=== PATIENT | female | born 1965 | race Caucasian/White ===

== ENCOUNTER 2018-08-20 21:35 | Observation (INO) | payer OTHER, MEDICAID ==
[2018-08-20] MEDS ORDERED: NS 1,000 ML IV ONE ×4 (21:47→22:41)
--- NOTE | 2018-08-20 21:59 | EDPHY ---
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 Thyroid cancer 1999. CABG 2013 - Social History Smoking Status: Current some day smoker Constitutional: Initial Vital Signs Temperature (C) 36.6 C 08/20/18 21:36 Heart Rate 59 L 08/20/18 21:36 Respiratory Rate 16 08/20/18 21:36 Blood Pressure 81/52 L 08/20/18 21:36 O2 Sat (%) 98 08/20/18 21:36 O2 Delivery Mode Room Air Allergies/Adverse Reactions: hydromorphone [From Dilaudid] Allergy (Verified 08/20/18 21:42) Home Medications: Medication Instructions Recorded Allopurinol 08/20/18 Atorvastatin Calcium 08/20/18 Clopidogrel 08/20/18 Fenofibrate 08/20/18 Furosemide 08/20/18 Gabapentin 08/20/18 Isosorbide Dinit/Hydralazine 08/20/18 Lantus 08/20/18 Metoprolol ER-Hctz 100-12.5 mg 08/20/18 buPROPion 08/20/18 novoLOG 08/20/18 Medical Decision Making ED Course/Re-evaluation: CHIEF COMPLAINT: Hallucinations, painful urination HISTORY OF PRESENT ILLNESS: The patient is a 53 y/o female complaining of hallucinations and burning while urinating. The patient states that she is hallucinating "her 4 year old grandson and his mother are talking to her". Per her son, the patient has "not been making since". For the past 3 weeks she has had pain while urinating. She saw her PCP regarding this but was not prescribed any medications as they "were more concerned about her heart and eye sight". No fever, headache, body aches, lightheadedness, chest pain, heart palpitations, shortness of breath, cough, abdominal pain, bowel complaints, numbness, paresthesias. REVIEW OF SYSTEMS: A 10 point review of systems was performed and is negative with the exception of the elements mentioned in the history of present illness. PHYSICAL EXAM: HR, BP, O2 Sat, RR. Temp noted General Appearance: Alert, well hydrated, appropriate, appears systemically ill. Head: Atraumatic without scalp tenderness or obvious injury Eyes: Pupils equal, round, reactive to light and accommodation, EOMI, no trauma , no injection. Ears: Clear bilaterally, no perforation, normal landmarks Nose: Atraumatic, no rhinorrhea, clear. Throat: There is no erythema or exudates, no lesions, normal tonsils, mucus membranes moist. Neck: Supple, 2+ carotid upstroke, nontender, no lymphadenopathy. Respiratory: No retractions, no distress, no wheezes, and no accessory muscle use. Lungs are clear to auscultation bilaterally. Cardiovascular: Regular rate and rhythm, no murmurs, rubs, or gallops. Bilateral carotid, radial, dorsalis pedis, and posterior tibial pulses intact. Good capillary refill all extremities. Gastrointestinal: Abdomen is soft, nontender, non-distended, no masses, no rebound, no guarding, no peritoneal signs. Musculoskeletal: Normal active ROM of all extremities, atraumatic. Neurological: Alert and interactive. The patient has normal DTRs and non- focal cranial nerves, motor, sensory, and cerebellar exam. Skin: No rashes, good turgor, no nodules on palpation. 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 DIFFERENTIAL DIAGNOSIS: The differential diagnosis for the patient's altered mental status included but was not limited to hypoglycemia, infectious process, electrolyte abnormality, head injury, neurologic process, anemia, cardiac process, and intoxicants. MEDICAL DECISION MAKING: The patient is a 53 y/o female presenting with hallucinations and burning while urinating. Per her son, the patient has "not been making since". For the past 3 weeks she has had pain while urinating. On exam she appears systemically ill and is hypotensive; I am concerned for sepsis. Labs ordered; 2L IV NS administered. 2212: Patient's lactate is 3.6, she does not have an elevated WBC; additional labs still pending. 2gm IV Ceftriaxone administered. 2237: Patient does not meet sepsis criteria although she does have a MAP of 50 and is hypotensive. Additional labs still pending. 2250: I consulted with the hospitalist service, Dr. Salvador accepts admission of this patient. - Data Points Laboratory Results: Laboratory Results 08/20/18 22:00 08/20/18 22:00 08/20/18 08/20/18 08/20/18 22:30 22:10 22:00 WBC RBC Hgb Hct MCV MCH MCHC RDW Plt Count MPV Neut % (Auto) Lymph % (Auto) [place] % (Auto) Eos % (Auto) Baso % (Auto) Nucleat RBC Rel Count Absolute Neuts (auto) Absolute Lymphs (auto) Absolute Monos (auto) Absolute Eos (auto) Absolute Basos (auto) Absolute Nucleated RBC Immature Gran % Immature Gran # PT 12.4 SEC SEC (12.0-15.0) INR 0.96 (0.83-1.16) APTT 26.3 SEC SEC (23.0-38.0) VBG Lactic Acid 3.6 mmol/L H mmol/L (0.7-2.1) Sodium Potassium Chloride Carbon Dioxide Anion Gap BUN Creatinine Estimated GFR Glucose Calcium Total Bilirubin Beta HCG, Qual Urine Color Pending Urine Appearance Pending Urine pH Pending Ur Specific [place] Pending Urine Protein Pending Urine Ketones Pending Urine Blood Pending Urine Nitrate Pending Urine Bilirubin Pending Urine Urobilinogen Pending Ur Leukocyte Esterase Pending Urine RBC Pending Urine WBC Pending Ur Epithelial Cells Pending Urine Glucose Pending Salicylates Urine Opiates Screen Pending Acetaminophen Urine Barbiturates Pending Ur Phencyclidine Scrn Pending Ur Amphetamine Screen Pending U Benzodiazepines Scrn Pending Urine Cocaine Screen Pending U Marijuana (THC) Screen Pending Ethyl Alcohol 08/20/18 08/20/18 08/20/18 22:00 22:00 22:00 WBC 6.12 10^3/uL 10^3/uL (3.80-9.50) RBC 4.21 10^6/uL 10^6/uL (4.18-5.33) Hgb 13.1 g/dL g/dL (12.6-16.3) Hct 37.0 % L % (38.0-47.0) MCV 87.9 fL fL (81.5-99.8) MCH 31.1 pg pg (27.9-34.1) MCHC 35.4 g/dL g/dL (32.4-36.7) RDW 13.1 % % (11.5-15.2) Plt Count 338 10^3/uL 10^3/uL (150-400) MPV 10.9 fL fL (8.7-11.7) Neut % (Auto) 54.2 % % (39.3-74.2) Lymph % (Auto) 28.4 % % (15.0-45.0) [place] % (Auto) 10.5 % % (4.5-13.0) Eos % (Auto) 5.1 % % (0.6-7.6) Baso % (Auto) 1.5 % % (0.3-1.7) Nucleat RBC Rel Count 0.0 % % (0.0-0.2) Absolute Neuts (auto) 3.32 10^3/uL 10^3/uL (1.70-6.50) Absolute Lymphs (auto) 1.74 10^3/uL 10^3/uL (1.00-3.00) Absolute Monos (auto) 0.64 10^3/uL 10^3/uL (0.30-0.80) Absolute Eos (auto) 0.31 10^3/uL 10^3/uL (0.03-0.40) Absolute Basos (auto) 0.09 10^3/uL 10^3/uL (0.02-0.10) Absolute Nucleated RBC 0.00 10^3/uL 10^3/uL (0-0.01) Immature Gran % 0.3 % % (0.0-1.1) Immature Gran # 0.02 10^3/uL 10^3/uL (0.00-0.10) PT INR APTT VBG Lactic Acid Sodium 131 mEq/L L mEq/L (135-145) Potassium 3.8 mEq/L mEq/L (3.5-5.2) Chloride 99 mEq/L mEq/L (97-110) Carbon Dioxide 21 mEq/l L mEq/l (22-31) Anion Gap 11 mEq/L mEq/L (6-14) BUN 50 mg/dL H mg/dL (7-23) Creatinine 1.7 mg/dL H mg/dL (0.6-1.0) Estimated GFR 31 Glucose 114 mg/dL H mg/dL (70-100) Calcium 8.0 mg/dL L mg/dL (8.5-10.4) Total Bilirubin 0.4 mg/dL mg/dL (0.1-1.4) Beta HCG, Qual NEGATIVE Urine Color Urine Appearance Urine pH Ur Specific [place] Urine Protein Urine Ketones Urine Blood Urine Nitrate Urine Bilirubin Urine Urobilinogen Ur Leukocyte Esterase Urine RBC Urine WBC Ur Epithelial Cells Urine Glucose Salicylates < 1.0 mg/dL L mg/dL (2.0-20.0) Urine Opiates Screen Acetaminophen < 10 mcg/mL L mcg/mL (10-30) Urine Barbiturates Ur Phencyclidine Scrn Ur Amphetamine Screen U Benzodiazepines Scrn Urine Cocaine Screen U Marijuana (THC) Screen Ethyl Alcohol < 10 mg/dL mg/dL (0-10) Medications Given: Discontinued Medications Sodium Chloride (Ns) 1,000 mls @ 0 mls/hr IV ONCE ONE PRN Reason: Wide Open Stop: 08/20/18 21:48 Last Admin: 08/20/18 21:47 Dose: 1,000 mls Sodium Chloride (Ns) 1,000 mls @ 0 mls/hr IV EDNOW ONE; Wide Open PRN Reason: Protocol Stop: 08/20/18 22:02 Last Admin: 08/20/18 22:05 Dose: 1,000 mls Ceftriaxone Sodium 2 gm/ (Sodium Chloride) 50 mls @ 100 mls/hr IV EDNOW ONE PRN Reason: Protocol Stop: 08/20/18 22:44 Last Admin: 08/20/18 22:49 Dose: 50 mls Sodium Chloride (Ns) 1,000 mls @ 0 mls/hr IV EDNOW ONE; Wide Open PRN Reason: Protocol Stop: 08/20/18 22:21 Last Admin: 08/20/18 22:20 Dose: 1,000 mls Departure - Departure Disposition: [facility] Inpatient Acute Clinical Impression: Hallucination Hypotension Qualifiers: Hypotension type: other hypotension type Qualified Code(s): I95.89 - Other hypotension Condition: Fair Referrals: Patient,NotPresent [Unknown] - As per Instructions Report Scribed for: Benjamin Wagner Report Scribed by: Shaunna Vivar Date of Report: 08/20/18 Time of Report: 22:29
[2018-08-20 22:12] LABS: PLATELET COUNT 338 10^3/uL (150-400)
[2018-08-20 22:22] LABS: INR 0.96 (0.83-1.16); PROTIME(PATIENT) 12.4 SEC (12.0-15.0)
[2018-08-20] MEDS ORDERED: cefTRIAXone 1 GM/DEXTROSE 1 GM/50 ML BAG IV ONE (22:44)
[2018-08-20] MEDS ORDERED: ONDANSETRON DISINTEGRATING 4 MG TAB PO PRN (22:56)
[2018-08-20] MEDS ORDERED: ONDANSETRON 4 MG/2 ML VIAL IVP PRN (22:56)
[2018-08-21] MEDS: LR 1,000 ML IV SCH ×3 (00:38→14:02)
--- NOTE | 2018-08-21 01:30 | PDGENHP ---
History and Physical - Chief Complaint Dysuria, hypotension, confusion - History of Present Illness 53 yo F w/ hx of IDDM, CAD s/p CABG, and thyroid CA presents with dysuria and confusion. The patient tells me she has been having urinary symptoms for about 3 weeks. These include urgency, frequent urination, and foul smelling urine. Over the last 3 days she has noted dysuria, hematuria, and eventually confusion. Over the last few days her blood sugars have been very poorly controlled, with her glucometer indicating levels above those which could be read. She has a history of difficult to control DM. She is s/p BKA bilaterally and has known CKD as well. She takes insulin glargine 50 u HS and aspart sliding scale TID. Upon arrival in the ED she was noted to be hypotensive with an elevated lactic acid. Her blood pressure and lactic acid normalized with 3 L of IVF. Interestingly, her infectious work-up is mostly unremarkable. She is displaying 0/4 SIRS criteria at the moment. At the time of my evaluation her mental status is now normal and she is feeling much improved. She is being admitted for further evaluation. Case discussed with Dr. Wagner; records reviewed and summarized above. History Information - Allergies/Home Medication List Allergies/Adverse Reactions: hydromorphone [From Dilaudid] Allergy (Verified 08/20/18 21:42) Home Medications: Allopurinol 08/20/18 [Last Taken Unknown] Atorvastatin Calcium 08/20/18 [Last Taken Unknown] Clopidogrel 08/20/18 [Last Taken Unknown] Fenofibrate 08/20/18 [Last Taken Unknown] Furosemide 08/20/18 [Last Taken Unknown] Gabapentin 08/20/18 [Last Taken Unknown] Isosorbide Dinit/Hydralazine 08/20/18 [Last Taken Unknown] Lantus 08/20/18 [Last Taken Unknown] Metoprolol ER-Hctz 100-12.5 mg 08/20/18 [Last Taken Unknown] buPROPion 08/20/18 [Last Taken Unknown] novoLOG 08/20/18 [Last Taken Unknown] I have personally reviewed and updated: family history, medical history - Past Medical History coronary artery disease, cancer, diabetes type 2 - Surgical History Reports: amputation (B/l BKA), coronary bypass surgery, thyroid surgery - Family History Positive for: CAD - Social History Smoking Status: Current some day smoker Review of Systems Review of Systems: ROS: 10pt was reviewed & negative except for what was stated in HPI & below Physical Exam Physical Exam: Temp Pulse Resp BP Pulse Ox 36.5 C 66 18 117/67 97 08/20/18 23:24 08/21/18 00:00 08/21/18 00:00 08/21/18 00:00 08/21/18 00:00 Constitutional: chronically ill appearing, obese Eyes: PERRL, EOMI Ears, Nose, Mouth, Throat: moist mucous membranes, no oral mucosal ulcers Cardiovascular: regular rate and rhythym, systolic murmur Respiratory: no respiratory distress, clear to auscultation Gastrointestinal: normoactive bowel sounds, soft, non-tender abdomen Skin: warm, normal color Musculoskeletal: full muscle strength, other (S/p b/l BKAs) Neurologic: AAOx3, CN II-XII Intact Lab Data & Imaging Review 08/20/18 22:00 08/20/18 22:00 WBC 6.12 10^3/uL (3.80-9.50) 08/20/18 22:00 RBC 4.21 10^6/uL (4.18-5.33) 08/20/18 22:00 Hgb 13.1 g/dL (12.6-16.3) 08/20/18 22:00 Hct 37.0 % (38.0-47.0) L 08/20/18 22:00 MCV 87.9 fL (81.5-99.8) 08/20/18 22:00 MCH 31.1 pg (27.9-34.1) 08/20/18 22:00 MCHC 35.4 g/dL (32.4-36.7) 08/20/18 22:00 RDW 13.1 % (11.5-15.2) 08/20/18 22:00 Plt Count 338 10^3/uL (150-400) 08/20/18 22:00 MPV 10.9 fL (8.7-11.7) 08/20/18 22:00 Neut % (Auto) 54.2 % (39.3-74.2) 08/20/18 22:00 Lymph % (Auto) 28.4 % (15.0-45.0) 08/20/18 22:00 [place] % (Auto) 10.5 % (4.5-13.0) 08/20/18 22:00 Eos % (Auto) 5.1 % (0.6-7.6) 08/20/18 22:00 Baso % (Auto) 1.5 % (0.3-1.7) 08/20/18 22:00 Nucleat RBC Rel Count 0.0 % (0.0-0.2) 08/20/18 22:00 Absolute Neuts (auto) 3.32 10^3/uL (1.70-6.50) 08/20/18 22:00 Absolute Lymphs (auto) 1.74 10^3/uL (1.00-3.00) 08/20/18 22:00 Absolute Monos (auto) 0.64 10^3/uL (0.30-0.80) 08/20/18 22:00 Absolute Eos (auto) 0.31 10^3/uL (0.03-0.40) 08/20/18 22:00 Absolute Basos (auto) 0.09 10^3/uL (0.02-0.10) 08/20/18 22:00 Absolute Nucleated RBC 0.00 10^3/uL (0-0.01) 08/20/18 22:00 Immature Gran % 0.3 % (0.0-1.1) 08/20/18 22:00 Immature Gran # 0.02 10^3/uL (0.00-0.10) 08/20/18 22:00 PT 12.4 SEC (12.0-15.0) 08/20/18 22:10 INR 0.96 (0.83-1.16) 08/20/18 22:10 APTT 26.3 SEC (23.0-38.0) 08/20/18 22:10 VBG Lactic Acid 2.1 mmol/L (0.7-2.1) 08/20/18 22:53 Sodium 131 mEq/L (135-145) L 08/20/18 22:00 Potassium 3.8 mEq/L (3.5-5.2) 08/20/18 22:00 Chloride 99 mEq/L (97-110) 08/20/18 22:00 Carbon Dioxide 21 mEq/l (22-31) L 08/20/18 22:00 Anion Gap 11 mEq/L (6-14) 08/20/18 22:00 BUN 50 mg/dL (7-23) H 08/20/18 22:00 Creatinine 1.7 mg/dL (0.6-1.0) H 08/20/18 22:00 Estimated GFR 31 08/20/18 22:00 Glucose 114 mg/dL (70-100) H 08/20/18 22:00 Serum Osmolality 297 mosmo/kg (280-297) 08/20/18 22:00 Calcium 8.0 mg/dL (8.5-10.4) L 08/20/18 22:00 Total Bilirubin 0.4 mg/dL (0.1-1.4) 08/20/18 22:00 Procalcitonin 0.60 ng/mL (0.02-0.10) H 08/20/18 22:00 Beta HCG, Qual NEGATIVE 08/20/18 22:00 Urine Color YELLOW 08/20/18 22:30 Urine Appearance MODERATELY TURBID 08/20/18 22:30 Urine pH 5.0 (5.0-7.5) 08/20/18 22:30 Ur Specific [place] 1.022 (1.002-1.030) 08/20/18 22:30 Urine Protein NEGATIVE (NEGATIVE) 08/20/18 22:30 Urine Ketones NEGATIVE (NEGATIVE) 08/20/18 22:30 Urine Blood 3+ (NEGATIVE) H 08/20/18 22:30 Urine Nitrate NEGATIVE (NEGATIVE) 08/20/18 22:30 Urine Bilirubin NEGATIVE (NEGATIVE) 08/20/18 22:30 Urine Urobilinogen NEGATIVE EU (0.2-1.0) 08/20/18 22:30 Ur Leukocyte Esterase NEGATIVE (NEGATIVE) 08/20/18 22:30 Urine RBC 5-10 /hpf (0-3) H 08/20/18 22:30 Urine WBC 1-3 /hpf (0-3) 08/20/18 22:30 Ur Epithelial Cells TRACE /lpf (NONE-1+) 08/20/18 22:30 Urine Bacteria 4+ /hpf (NONE SEEN) H 08/20/18 22:30 Urine Mucus TRACE /lpf (NONE-1+) 08/20/18 22:30 Urine Glucose 3+ (NEGATIVE) H 08/20/18 22:30 Salicylates < 1.0 mg/dL (2.0-20.0) L 08/20/18 22:00 Urine Opiates Screen NEGATIVE (NEGATIVE) 08/20/18 22:30 Acetaminophen < 10 mcg/mL (10-30) L 08/20/18 22:00 Urine Barbiturates NEGATIVE (NEGATIVE) 08/20/18 22:30 Ur Phencyclidine Scrn NEGATIVE (NEGATIVE) 08/20/18 22:30 Ur Amphetamine Screen NEGATIVE (NEGATIVE) 08/20/18 22:30 U Benzodiazepines Scrn NEGATIVE (NEGATIVE) 08/20/18 22:30 Urine Cocaine Screen NEGATIVE (NEGATIVE) 08/20/18 22:30 U Marijuana (THC) Screen NEGATIVE (NEGATIVE) 08/20/18 22:30 Ethyl Alcohol < 10 mg/dL (0-10) 08/20/18 22:00 Assessment & Plan Assessment: 53 yo F w/ hx of CAD s/p CABG and IDDM s/p b/l TKAs presents with hypotension and confusion. Plan: 1. Hypotension - This may be entirely driven by hypovolemia as a result of persistently elevated blood sugar. Lactate 3.6 on arrival but normalized after 3 L IVF. BP now normal after rehydration. Noting significant urinary symptoms ( despite reassuring UA), it seems reasonable to treat UTI noting severity of illness on presentation. - Admit for observation - S/p 30 ml/kg fluid bolus, continue mIVF overnight - Will treat for possible UTI as below 2. Possible UTI - Patient presents with 3 weeks of urinary frequency, urgency, and foul smelling urine. Over the last 3 days she developed dysuria and hematuria. UA notable for 3+ blood and 4+ bacteria but no significant pyuria. It is possible her symptoms are due to severe hyperglycemia, but it is reasonable to treat for infection pending urine culture noting hypotension on arrival and elevated procalcitonin. - CTX 1 g qD - Urine culture and blood cultures pending 3. IDDM - Poorly controlled per patient; BG values too high to read by her home glucometer over the last few days. She takes insulin glargine 50 u qHS and aspart SSI TID as an outpatient. She is s/p b/l BKAs related to poorly controlled DM. - Will dose reduce glargine to 30 u initially as I suspect decreased intake while in hospital, increase as necessary - Lispro SS TID ordered - Monitor BG ACHS; D50 IV PRN for hypoglycemia 4. DANE vs. CKD - Patient tells me she has abnormal kidney function at baseline, but we have no prior for comparison. - Monitor BMP - Avoid nephrotoxic agents, renally dose medications 5. CAD - S/p CABG - Continue home medications pending reconciliation Diet - Regular Code - Full Ppx - LMWH Dispo - Admit under observation status
[2018-08-21] MEDS ORDERED: INSULIN LISPRO 100 UNIT/ML SC SCH (08:00)
[2018-08-21] MEDS ORDERED: ALBUTEROL 60 PUFFS/8 GM MDI IH PRN (08:47)
[2018-08-21] MEDS ORDERED: TEARS/DEXTRAN 70/HYPROMELLOSE 15 ML OPHT.BTL EACHEYE PRN (08:47)
--- NOTE | 2018-08-21 08:48 | HOSPPROG ---
Hospitalist Progress Note Assessment/Plan: DIAGNOSES: * Acute metabolic encephalopathy, uncertain cause, with visual hallucinations -improved * Acute kidney injury, hemodynamic, with history of stage III-IV renal disease -improved this morning after IV fluids -her baseline renal function unknown to me at present * Hypotension, uncertain etiology but suspect dehydration is at least partly causative, on Lasix, metoprolol, Isordil at home * Diabetes mellitus, 20 years, insulin-dependent -hypoglycemia this morning -describes outpatient symptoms suggesting hyperglycemia but no definite evidence of that at present * Chronic right BKA from Charcot foot deformity foot infections - stump in good condition * 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 The cause of her hypotension unknown. No fever or high white count or other specific signs of infection. Hyperglycemia was proposed as a cause but she comes in with a glucose of 117 (has not been checked since ER) She denies any use of alcohol or drugs, and this is quite believable She is from [place], just moved here a month ago to live with her son. Needs to be hooked up with primary care PLANS: * Will stop IV hydration now and follow her intake closely, as well as her renal function * Follow sugars closely, careful measures to avoid hypoglycemia, and hemoglobin A1c ordered * Will adjust treatment for diabetes accordingly * Awaiting repeat lab draw from this morning to check on her renal function * Will stop antibiotics for now and follow for any definitive signs of infection SUBJECTIVE: Some mild headache otherwise no specific symptoms She describes to me that she was having visual hallucinations over the last couple days at home but that these have now resolved She says during that time she was feeling tired and lightheaded but no other specific symptoms OBJECTIVE Vitals reviewed: Now with some mild hypertension otherwise normal without fever Exam: alert oriented skin warm dry color ok resps not labored lungs clear BSs heart regular abd soft nondistended nontender, bowel sounds present limbs warm, no edema; she has old bilateral BKA as an both stumps look very good , she has per prostheses here with her iv site ok Lab data: We now have back her repeat labs from this morning her creatinine is improved to 1.2, blood sugar was down at 71 though is slowly creeping up during the day as she eats Electrolytes stable CBC stable Imaging: I ordered I have reviewed images from a chest x-ray two view today: There is no infiltrate, no heart failure, no specific abnormality of concern Objective: Vital Signs Temp Pulse Resp BP Pulse Ox 36.6 C 63 16 158/84 H 95 08/21/18 07:56 08/21/18 07:56 08/21/18 07:56 08/21/18 07:56 08/21/18 07:56 08/20/18 08/21/18 08/22/18 06:59 06:59 06:59 Intake Total 3775 Output Total 1700 Balance 2075 PT 12.4 SEC (12.0-15.0) 08/20/18 22:10 INR 0.96 (0.83-1.16) 08/20/18 22:10 - Time Spent With Patient Time Spent with Patient: greater than 35 minutes (Over 3 visits) Time Spent with Patient: Greater than 35 minutes spent on this patients care, greater than 50% of time spent counseling, educating, and coordinating care regarding the above mentioned plan. ICD10 Worksheet Patient Problems: Problems Problem Status Onset Hallucination Acute Hypotension Acute
[2018-08-21 08:55] LABS: PLATELET COUNT 332 10^3/uL (150-400)
[2018-08-21] MEDS: ACETAMINOPHEN 325 MG TAB PO PRN ×2 (08:56→16:30)
[2018-08-21] MEDS: ENOXAPARIN 40 MG/0.4 ML SYR SC SCH (08:57)
[2018-08-21] MEDS: GABAPENTIN 300 MG CAP PO SCH ×3 (09:22→21:07)
[2018-08-21] MEDS: ISOSORBIDE MONONITRATE 20 MG TAB PO SCH ×2 (09:22→15:58)
--- NOTE | 2018-08-21 14:55 | ASMTCMCOM ---
CM Note CM Note Notes: Pts case discussed w/ Dr. Vergara. Pt is a 53 y/o female admitted for hypotension and urinary symptoms. Pt with a surgical hx of amputation (B/I BKA). CM met w/ pt and she reports that she is established w/ [facility] as a primary care doctor. Pt recently moved from [place] to live w/ her son in [place]. Per Dr. Vergara, pt is at her baseline and does not require any HC at this time. CM available for changes. Plan: Independent Date Signed: 08/21/2018 02:52 PM Electronically Signed By:MARILUZ Reynolds
[2018-08-21] MEDS: CITALOPRAM 20 MG TAB PO SCH (15:58)
[2018-08-21] MEDS: buPROPion SR 100 MG TAB PO SCH (15:58)
[2018-08-21] MEDS: ALLOPURINOL 100 MG TAB PO SCH (15:59)
[2018-08-21] MEDS: CLOPIDOGREL BISULFATE 75 MG TAB PO SCH (15:59)
[2018-08-21] MEDS: FENOFIBRATE 48 MG TAB PO SCH (15:59)
[2018-08-21] MEDS: METOPROLOL TARTRATE 50 MG TAB PO SCH (15:59)
[2018-08-21] MEDS: ATORVASTATIN CALCIUM 40 MG TAB PO SCH (15:59)
[2018-08-21] MEDS ORDERED: INSULIN GLARGINE 30 UNIT SC SCH (21:00)
[2018-08-21] MEDS ORDERED: INSULIN GLARGINE 100 UNITS/ML UNIT SC SCH ×2 (21:00)
[2018-08-21] MEDS: INSULIN LISPRO 100 UNIT/ML SC SCH (21:07)
[2018-08-22] MEDS: ACETAMINOPHEN 325 MG TAB PO PRN ×2 (05:16→21:16)
[2018-08-22] MEDS: INSULIN LISPRO 100 UNIT/ML SC SCH ×4 (07:46→21:15)
[2018-08-22] MEDS: ISOSORBIDE MONONITRATE 20 MG TAB PO SCH ×2 (08:08→16:59)
[2018-08-22] MEDS: GABAPENTIN 300 MG CAP PO SCH ×3 (08:09→21:16)
[2018-08-22] MEDS: ENOXAPARIN 40 MG/0.4 ML SYR SC SCH (08:11)
[2018-08-22] MEDS ORDERED: INSULIN GLARGINE 100 UNITS/ML UNIT SC SCH (09:54)
--- NOTE | 2018-08-22 10:01 | HOSPPROG ---
Hospitalist Progress Note Assessment/Plan: 53 yo female who recently moved to [place] with hx of uncontrolled IDDM (A1C 13) , HTN, who was admitted due to hypotension #IDDM, uncontrolled, labile BG. -Her home dose was 50 units of Lantus nightly but she took sporadically. She missed doses, other times she halved her dose -Glucose here has been labile (60-443) -Will start Metformin 500mg BID -Decrease Lantus to 25 units HS -Change diet to Diabetes diet #Hypotension on admission, resolved. Now with HTN -She has HTN at baseline -Unclear why hypotension was present on admission. No signs of infection. Initially treated empirically with IV abx for suspected UTI -unclear why she is on Lasix as this may have contributed to the hypotension. Will continue to hold. no hx of CHF -Her BP is elevated now. Will treat initially with Hydralazine PRN. Likely would benefit from an DANISHA-I and this could be started tomorrow pending renal status #DANE vs chronic Renal injury vs Acute on chronic -she looks Euvolemic -will repeat labs in a.m. #Acute Encephalopathy, metabolic, resolved #Visual hallucination, etiology multifactorial, resolved #chronic BKA, some skin erythema, wound care to consult DVT proph: Heparin D/W nurses Dispo: cont inpatient Subjective: not confused. denies pain. glucose is labile. Hypoglycemia earlier this morning. Objective: Vital Signs Temp Pulse Resp BP Pulse Ox 36.7 C 63 16 177/86 H 96 08/22/18 07:32 08/22/18 07:32 08/22/18 07:32 08/22/18 07:32 08/22/18 07:32 Laboratory Results 08/21/18 08:47 08/22/18 04:57 08/21/18 08/22/18 08/23/18 05:59 05:59 05:59 Intake Total 3775 1060 Output Total 1700 1950 Balance 2075 -890 PT 12.4 SEC (12.0-15.0) 08/20/18 22:10 INR 0.96 (0.83-1.16) 08/20/18 22:10 - Physical Exam Constitutional: no apparent distress Eyes: PERRL, EOMI Ears, Nose, Mouth, Throat: moist mucous membranes, hearing normal Cardiovascular: regular rate and rhythym, No edema Respiratory: no respiratory distress, no rales or rhonchi, clear to auscultation Gastrointestinal: normoactive bowel sounds, soft, non-tender abdomen Skin: warm Neurologic: AAOx3 Psychiatric: interacting appropriately, not anxious, not encephalopathic Lymph, Heme, Immunologic: No petechiae ICD10 Worksheet Patient Problems: Problems Problem Status Onset Hallucination Acute Hypotension Acute
[2018-08-22] MEDS: metFORMIN HCL 500 MG TAB PO SCH ×2 (13:29→18:23)
--- NOTE | 2018-08-22 16:38 | WOCRNPDOC ---
WOCRN Advanced Assessment Note - Skin Integrity Problem, Advanced Assess Bilateral Leg Abrasion Dressing Type: Open to Air Integumentary Issue Intervention: Dressing Applied, Hydrogel Applied Wound Bed Color: Soddy-Daisy Wound Edges: Attached Site Measurement - Head-to-Toe Length X Width X Depth (cm): multiple cracks/ fissures bilaterally ranging from length of 0.5 to 1.5 cm and witdh up to 0.2 cm , depth 0.1 Skin Integrity Problem Comment: Linear cracks/fissures with vertical orientation to anterior tibial plateau area bilaterally, just above the BKA sites. Per patient, last BKA was 2 years ago. Has had build up of callous before from the prothetics rubbing on the BKA stumps but per pt, this is the first time the skin has opened into a wound. Patient moved here 3 weeks ago from [place] away from the [facility]. Wounds cleaned with gauze and ns. Wound gel applied and covered with Allevyn gentle border lite 2x4 in. for decreased profile for better fit in prosthetics. Wound care will follow up again.
[2018-08-22] MEDS: CLOPIDOGREL BISULFATE 75 MG TAB PO SCH (16:58)
[2018-08-22] MEDS: METOPROLOL TARTRATE 50 MG TAB PO SCH (16:58)
[2018-08-22] MEDS: ALLOPURINOL 100 MG TAB PO SCH (16:59)
[2018-08-22] MEDS: buPROPion SR 100 MG TAB PO SCH (16:59)
[2018-08-22] MEDS: ATORVASTATIN CALCIUM 40 MG TAB PO SCH (16:59)
[2018-08-22] MEDS: CITALOPRAM 20 MG TAB PO SCH (16:59)
[2018-08-22] MEDS: FENOFIBRATE 48 MG TAB PO SCH (17:00)
[2018-08-22] MEDS: hydrALAZINE 20 MG/ML VIAL IVP PRN (21:15)
[2018-08-23] MEDS: metFORMIN HCL 500 MG TAB PO SCH (08:05)
[2018-08-23] MEDS: INSULIN LISPRO 100 UNIT/ML SC SCH (08:05)
[2018-08-23] MEDS: hydrALAZINE 20 MG/ML VIAL IVP PRN (08:06)
[2018-08-23] MEDS ORDERED: D50W 25 GM/50 ML SYR IVP PRN (08:49)
[2018-08-23] MEDS: ISOSORBIDE MONONITRATE 20 MG TAB PO SCH (10:28)
[2018-08-23] MEDS: GABAPENTIN 300 MG CAP PO SCH (10:29)
[2018-08-23] MEDS: ENOXAPARIN 40 MG/0.4 ML SYR SC SCH (10:30)
[2018-08-23] MEDS ORDERED: LISINOPRIL 5 MG TAB PO SCH (11:15)
--- NOTE | 2018-08-23 11:20 | PDDCSUM ---
Discharge Summary Discharge Summary: 53 yo female who recently moved to [place] with hx of uncontrolled IDDM (A1C 13) , HTN, who was admitted due to hypotension and Hypoglycemia. Etiology of Hypotension is unclear and could have been due to dehydration and diuretic use. She has a long hx of HTN and has been on several meds in the past. Once stable, the pt's BP was very high with one reading above 200 systolic. She has been started on Lisinopril 5mg PO Daily. She likely will need more but there is concern for labile blood pressure and hypotension. BB has been continued She reports that she is on Lasix due to CHF but it has not been given during this hospitalization. She is Euvolemic on discharge. I did not continue any diuretics for now. Will need f/u. As for her glucose mgmt, this has been complicated as well. A1C is very high. She reports that she has been taking 30-50 units of Lantus nightly but inconsistently. She was started on Lantus 25 units with improvement but has had both hypoglycemia and hyperglycemia with this regimen. Compliance is likely an issue. Will not titrate Lantus further until more data is available as she will keep a diary for her PCP. She was also restarted on Metformin 500mg PO BID which she was on before. she will continue her insulin sliding scale. She likely will need scheduled short acting insulin. Will need to continue a diabetic diet. She will f/u with her PCP in 1-2 weeks. She was offered an additional day of hospitalization to monitor glucose and bp but at this point she wants to go home. Discharge Diagnosis: #IDDM, uncontrolled, labile BG #Hypotension on admission, resolved. Now with HTN #DANE vs chronic Renal injury vs Acute on chronic -Cr 1.1 on discharge #Acute Encephalopathy, metabolic, resolved #Visual hallucination, etiology multifactorial, resolved #chronic BKA, some skin erythema, wound care to consult Exam: NAD AAOX3 RRR CTAB BILATERAL BKA MEDS: SEE MED REC TOTAL TIME SPENT ON D/C IS 40 MINS. D/W NURSING.
--- NOTE | 2018-08-23 11:24 | ASMTLACE ---
RACHELE Length of stay for Answers: 3 days current admission Comorbidities - select Answers: Coronary Artery Disease all that apply Diabetes (uncontrolled or controlled) # of Emergency department Answers: 1-2 visits in the last 6 months Score: 7 Date Signed: 08/23/2018 11:23 AM Electronically Signed By:Sweetie Corona
--- NOTE | 2018-08-23 11:27 | ASDISCHSUM ---
Discharge Information Plan Status:Home with No Needs Medically Cleared to Leave: Discharge Date: CM D/C Disposition: ADT D/C Disposition:Home, Routine, Self-Care Projected Discharge Date: Transportation at D/C: Discharge Delay Reason: Follow-Up Date: Discharge Slot: Final Diagnosis: Placement Information Patient Contact Information Contact Name:TRA Relationship:Son Address: Work Phone: City: [facility] Phone: State/Zip Code: Email: Financial Information Financial Class:Medicare Advantage Plans Primary Plan Desc:ARIADNE JOHN MEDICARE Primary Plan Number:[id number] Secondary Plan Desc:MEDDATA Secondary Plan Number:[id number] Assessment Information LACE LACE Length of stay for Answers: 3 days current admission Comorbidities - select Answers: Coronary Artery Disease all that apply Diabetes (uncontrolled or controlled) # of Emergency department Answers: 1-2 visits in the last 6 months Score: 7 Date Signed: 08/23/2018 11:23 AM Electronically Signed By:Sweetie Corona [facility] CM Progress Note CM Note CM Note Notes: Pts case discussed w/ Dr. Vergara. Pt is a 53 y/o female admitted for hypotension and urinary symptoms. Pt with a surgical hx of amputation (B/I BKA). CM met w/ pt and she reports that she is established w/ Joellen Carlton as a primary care doctor. Pt recently moved from [place] to live w/ her son in [place]. Per Dr. Vergara, pt is at her baseline and does not require any HC at this time. CM available for changes. Plan: Independent Date Signed: 08/21/2018 02:52 PM Electronically Signed By:MARILUZ Reynolds Case Management Discharge Plan Note Case Management Discharge Discharge Order Complete? Answers: Yes Transportation Arranged Answers: Family/Friends Family Notified Answers: Yes Notes: Pt called her son Discharge Comments Notes: Pt is being discharged today. She is going home independently with no needs. She will have her son pick her up this afternoon. CM gave pt information on [employer] from [employer], as well as a list of transportation options as she expressed a need for transportation to and from doctor's appointments when her [id number] is unable to take her. Date Signed: 08/23/2018 11:26 AM Electronically Signed By:Sweetie Corona Intervention Information
[2018-08-23 11:44] VITALS: BP 136/76
[2018-08-23] MEDS ORDERED: INSULIN LISPRO 100 UNIT/ML SC SCH (12:00)
== END 2018-08-23 15:28 | disposition home or self-care (01) ==
LOC: F3E 08-21 00:03
PROVIDERS: ADMIT Student in an Organized Health Care Education/Training Program; ATTEND Family Medicine
DX: I95.9 Hypotension, unspecified (principal); I10 Essential (primary) hypertension; E11.65 Type 2 diabetes mellitus with hyperglycemia; E11.649 Type 2 diabetes mellitus with hypoglycemia without coma; Z79.4 Long term (current) use of insulin; Z79.84 Long term (current) use of oral hypoglycemic drugs; E86.0 Dehydration; E11.22 Type 2 diabetes mellitus with diabetic chronic kidney disease; N18.3 Chronic kidney disease, stage 3 (moderate); N17.9 Acute kidney failure, unspecified; G93.41 Metabolic encephalopathy; Z89.511 Acquired absence of right leg below knee; Z89.512 Acquired absence of left leg below knee; T87.89 Other complications of amputation stump; Z85.850 Personal history of malignant neoplasm of thyroid; Z85.831 Personal history of malignant neoplasm of soft tissue; I25.10 Atherosclerotic heart disease of native coronary artery without angina pectoris; Z95.1 Presence of aortocoronary bypass graft; F17.210 Nicotine dependence, cigarettes, uncomplicated
CPT/HCPCS: 71046; 96361; 96365; 96372; 96375; 96376; 99285; G0378; J0360; J0696; J1815; 80305; G0480; J1650